=== PATIENT | female | born 1970 | race Caucasian/White ===

== ENCOUNTER → 2016-07-15 | Outpatient (CLI) | payer OTHER ==
--- NOTE | 2016-07-15 11:41 | KCIC ---
PROCEDURE Maxillofacial bone CT without contrast. HISTORY Sinusitis. Recent tooth extraction. TECHNIQUE Computed tomographic images of the maxillofacial bones were obtained without contrast. One or more of the following individualized dose reduction techniques were utilized for this examination: 1. Automated exposure control; 2. Adjustment of the mA and/or kV according to patient size; 3. Use of iterative reconstruction technique. COMPARISON None. FINDINGS There is gas and fluid within the sockets of a multiple recently extracted maxillary teeth. There are associated defects within the floor of the maxillary sinus. There is mild left greater than right maxillary sinus mucosal thickening. There is a left maxillary sinus mucous retention cyst. The ostiomeatal units are patent. There is rightward nasal septal deviation. The orbits and visualized portions of the brain and calvarium are unremarkable. The mastoid air cells are clear. The temporomandibular joints are intact. IMPRESSION 1. Mild maxillary sinus mucosal thickening with a left maxillary sinus mucous retention cyst. 2. Nasal septal deviation. 3. Findings consistent with recent multiple maxillary tooth extraction. There are associated small bony defects with within the floors of the maxillary sinuses. Electronically signed by: Rama Lowry (Jul 15, 2016 11:39:24)
== END | disposition home or self-care (01) ==
LOC: KCIC CT 10:44
DX: J32.0 Chronic maxillary sinusitis (principal); J34.2 Deviated nasal septum; J34.3 Hypertrophy of nasal turbinates; J34.89 Other specified disorders of nose and nasal sinuses
CPT/HCPCS: 70486